=== PATIENT | female | born 1965 | race Caucasian/White ===

== ENCOUNTER 2018-02-12 09:39 | Emergency (ER) | payer OTHER ==
[~2018-02-12] VITALS: Ht 157.5 cm; Wt 73.5 kg
[2018-02-12] MEDS ORDERED: DIAZEPAM10 MG PO (12:32)
[2018-02-12] MEDS ORDERED: NEURONTIN300 MG PO (12:32)
== END 2018-02-12 14:42 | disposition home or self-care (01) ==
LOC: ER 09:39
DX: M54.31 Sciatica, right side (principal); M79.2 Neuralgia and neuritis, unspecified